=== PATIENT | male | born 1955 | race American Indian/Alaskan Native ===

== ENCOUNTER 2016-08-22 06:23 | Day surgery (SDC) | payer BC, OTHER ==
[~2016-08-22 06:23] MED LIST: Midazolam 1 MG/ML 2 ML SDV ONE; fentaNYL 100 MCG/2 ML SDV ONE
[2016-08-22] MEDS ORDERED: Sodium Chloride 0.9% 10 ML Syringe FLUSH PRN (06:24)
[2016-08-22] MEDS ORDERED: Dextrose 5%-0.45% NaCl 1,000 ML IV SCH (06:30)
[2016-08-22] MEDS ORDERED: fentaNYL 100 MCG/2 ML SDV IV ONE ×4 (07:27→16:38)
[2016-08-22] MEDS ORDERED: Midazolam 1 MG/ML 2 ML SDV IV ONE ×7 (07:28→16:38)
[2016-08-22 10:00] VITALS: BP 111/73
--- NOTE | 2016-08-22 11:03 | OR ---
DATE: 08/22/2016 PROCEDURE: Total colonoscopy, NBI, and multiple cold snare polypectomies. INSTRUMENT USED: CF-H180AL Olympus video colonoscope. Olympus distal detachment device. PREMEDICATIONS: Fentanyl 125 mcg intravenous, Versed 4 mg intravenous. The procedure was done under pulse oximetry, BP recording, and classroom monitor. INDICATION: Screening colonoscopic examination is done for detection of any polypoid lesions and removal, endoscopic hemostasis therapy if needed. DESCRIPTION OF PROCEDURE: Initial rectal exam was unremarkable. Rigid anoscopy showed moderate sized internal hemorrhoids without bleeding from them. The colonoscope was passed with ease. In the proximal sigmoid colon, 3 mm sized benign-appearing polyp was noted, NBI views were obtained, photographs were taken, cold snare polypectomy was done, the tissue was retrieved and sent for histopathology. Numerous scattered diverticula were noted in the distal left colon along with deformity. The scope was passed with ease up to the ileocecal area, photographs were taken of the normal-appearing cecum, identified by double- bulged ileocecal folds. No bleeding was noted from any of the visualized areas at the commencement of the examination. No stricture. No vascular ectasia. No large isolated ulcerations seen. No evidence of diffuse inflammatory bowel disease in the form of friability, contact bleeding, or ulcerations. Multiple diminutive polyps were noted, one in the mid transverse colon, and two in the distal ascending colon, multiple cold snare polypectomies were done, the tissues were retrieved sent for histopathology. No bleeding was noted from any of the visualized areas at the completion of examination. IMPRESSION: 1. Internal hemorrhoids. 2. Diverticulosis. 3. Multiple diminutive colonic polyps. The patient tolerated the procedure well. [facility] /[id number]
--- NOTE | 2016-08-22 12:51 | LETTER ---
08/22/2016 Jason Marks MD [address] [id number] RE: FUNMI REN Nelia : [address] Marks: Mr. Funmi Ren had colonoscopic examination done this morning and he tolerated the procedure well. I herewith send a copy of the endoscopy note and photographs for your review. Thank you. Sincerely, [facility] /[id number]
== END 2016-08-22 10:00 | disposition home or self-care (01) ==
LOC: DL.ENDO 06:23
PROVIDERS: ATTEND Internal Medicine Gastroenterology
DX: Z12.11 Encounter for screening for malignant neoplasm of colon (principal); D12.2 Benign neoplasm of ascending colon; D12.3 Benign neoplasm of transverse colon; K63.5 Polyp of colon; K57.30 Diverticulosis of large intestine without perforation or abscess without bleeding; K64.8 Other hemorrhoids; G47.33 Obstructive sleep apnea (adult) (pediatric); E66.9 Obesity, unspecified; E03.9 Hypothyroidism, unspecified; I10 Essential (primary) hypertension; E78.5 Hyperlipidemia, unspecified; N40.0 Benign prostatic hyperplasia without lower urinary tract symptoms; Z79.899 Other long term (current) drug therapy
CPT/HCPCS: 45385; J2250; J3010; J7042; 88305

== ENCOUNTER 2021-01-07 07:43 | Emergency (ER) | payer BC, OTHER ==
--- NOTE | 2021-01-07 08:03 | EDM.PDOC ---
ED HPI GENERAL MEDICAL PROBLEM - General Chief Complaint: Lower Extremity Injury/Pain Stated Complaint: LEFT LEG ISSUES Time Seen by Provider: 01/07/21 08:01 Source of Information: Reports: Patient, Old Records, RN, RN Notes Reviewed History Limitations: Reports: No Limitations - History of Present Illness INITIAL COMMENTS - FREE TEXT/NARRATIVE: Pt presents to ER from home by POV with c/o pain from the left upper leg to the ankle with numbness in the left foot. Pt states the symptoms were present this morning when he woke, and he thought maybe his foot was just asleep and he could walk it off. The numbness is now less, but still present and the pain is unchanged. Pt reports that on 10/20/20 he went to [facility] for left leg bypass and stents that was done through a catheter in his left groin. After the procedure it was determined that he had developed an "arterial blockage", and was taken back to surgery a second time and his leg was "opened" to correct the blockage. The pt does not know what vessels were bypassed, where or how many stents were placed, and does not know what was done at the second surgery. He does believe that everything turned out well because he has been walking an active with minimal pain until today. Pt denies swelling, discoloration, redness, increased warmth, or coldness of the left leg. Denies fever, chills, or shortness of breath. He states he is still taking the blood thinner as prescribed, but does not know the name of his medication. Pt states that he had some similar pain on 11/04/20 and [facility] [place] [facility] and was told everything looked okay. He doesn't know if the US was to look for arterial flow, a venous clot, or both. [facility] were [facility] and reviewed and will be submitted to be scanned into the EMR system. Onset: Gradual Duration: Constant Location: Reports: Lower Extremity, Left, Lower Extremity, Right Quality: Reports: Pressure Severity: Moderate Improves with: Reports: None Worsens with: Reports: Movement Context: Reports: Other (s/p stents and bypass left leg) Associated Symptoms: Reports: No Other Symptoms - Related Data Allergies Allergy/AdvReac Type Severity Reaction Status Date / Time shrimp Allergy Anaphylactic Verified 01/07/21 08:08 Shock Home Meds: Home Meds Ibuprofen 2 tab PO DAILY 08/18/16 [History] Levothyroxine Sodium 1 tab PO DAILY 08/18/16 [History] Lisinopril [Prinivil] 1 tab PO DAILY 08/18/16 [History] Simvastatin 1 tab PO BEDTIME 08/18/16 [History] Tamsulosin [Flomax] 1 tab PO BEDTIME 08/18/16 [History] Past Medical History HEENT History: Reports: None Cardiovascular History: Reports: Aneurysm (Left femoral artery), High Cholesterol, Hypertension, PVD, Stents (Left femoral artery and popliteal artery) Respiratory History: Reports: Sleep Apnea Gastrointestinal History: Reports: Diverticulosis, Other (See Below) Other Gastrointestinal History: FATTY LIVER. GALLBLADDER POLYP. GALLBLADDER SL UDGE Genitourinary History: Reports: BPH, Renal Calculus Musculoskeletal History: Reports: Back Pain, Chronic Neurological History: Reports: None Psychiatric History: Reports: None Endocrine/Metabolic History: Reports: Hypothyroidism, Obesity/BMI 30+ Hematologic History: Reports: None Immunologic History: Reports: None Oncologic (Cancer) History: Reports: None Dermatologic History: Reports: None - Infectious Disease History Infectious Disease History: Reports: Chicken Pox, Mumps - Past Surgical History Head Surgeries/Procedures: Reports: None HEENT Surgical History: Reports: None Cardiovascular Surgical History: Reports: None Respiratory Surgical History: Reports: None GI Surgical History: Reports: None Female Surgical History: Reports: Lithotripsy/ESWL Musculoskeletal Surgical History: Reports: None Dermatological Surgical History: Reports: None Social & Family History - Family History Family Medical History: No Pertinent Family History - Caffeine Use Caffeine Use: Reports: Coffee Other Caffeine Use: 2-3 cups - Living Situation & Occupation Living situation: Reports: Alone Review of Systems - Review of Systems Review Of Systems: Comprehensive ROS is negative, except as noted in HPI. ED EXAM, GENERAL - Physical Exam Exam: See Below Exam Limited By: No Limitations General Appearance: Alert, No Apparent Distress, Obese Throat/Mouth: Normal Voice, No Airway Compromise Head: Atraumatic, Normocephalic Neck: Normal Inspection Respiratory/Chest: No Respiratory Distress, Lungs Clear, Normal Breath Sounds, No Accessory Muscle Use, Chest Non-Tender Cardiovascular: Regular Rate, Rhythm, No Edema Peripheral Pulses: 0: Popliteal (L), Posterior Tibial (L), Dorsalis Pedis (L) (Present but weak by doppler), 2+: Femoral (L) GI/Abdominal: Normal Bowel Sounds, Soft, Non-Tender Extremities: Normal Range of Motion, Non-Tender, No Pedal Edema, Slow Capillary Refill (Left foot/toes). No: Joint Swelling, Ghanshyam's Sign, Increased Warmth, Mottled, Pallor, Redness Neurological: Alert, Oriented, CN II-XII Intact, Normal Cognition, Normal Gait, No Motor/Sensory Deficits Psychiatric: Anxious Skin Exam: Warm, Dry, Intact, Normal Color, No Rash, Wound/Incision (Surgical wound to left lower extremity are well healed without signs of infection.) Course - Vital Signs Last Recorded V/S: Last Vital Signs Temp 97.8 F 01/07/21 08:10 Pulse 84 01/07/21 08:10 Resp 16 01/07/21 08:10 BP 130/108 H 01/07/21 08:10 Pulse Ox 99 01/07/21 08:10 - Orders/Labs/Meds Labs: Laboratory Tests 01/07/21 01/07/21 01/07/21 Range/Units 08:21 08:21 08:21 WBC 8.0 (5.0-10.0) 10^3/uL RBC 4.88 (4.6-6.2) 10^6/uL Hgb 14.9 (14.0-18.0) g/dL Hct 43.5 (40.0-54.0) % MCV 89.1 (80-100) fL MCH 30.5 (27.0-34.0) pg MCHC 34.3 (33.0-35.0) g/dL Plt Count 204 (150-450) 10^3/uL Neut % (Auto) 68.5 (42.2-75.2) % Lymph % (Auto) 18.3 L (20.5-50.1) % [place] % (Auto) 7.3 (2-8) % Eos % (Auto) 4.5 H (1.0-3.0) % Baso % (Auto) 1.4 H (0.0-1.0) % PT 10.3 (9.0-12.0) SEC INR 1.0 (0.9-1.2) APTT 26.0 (22.0-34.0) SEC Sodium 136 (136-145) mmol/L Potassium 4.0 (3.5-5.1) mmol/L Chloride 101 (98-107) mmol/L Carbon Dioxide 24 (21-32) mmol/L Anion Gap 15.0 H (7-13) mEq/L BUN 17 (7-18) mg/dL Creatinine 1.14 (0.70-1.30) mg/dL Est Cr Clr Drug Dosing 59.85 mL/min Estimated GFR (MDRD) > 60 BUN/Creatinine Ratio 14.9 (No establ ref range) Glucose 162 H (70-99) mg/dL Calcium 8.7 (8.5-10.1) mg/dL Total Bilirubin 0.3 (0.2-1.0) mg/dL AST 15 (15-37) U/L ALT 37 (16-63) U/L Alkaline Phosphatase 81 (46-116) U/L Total Protein 7.4 (6.4-8.2) g/dL Albumin 3.7 (3.4-5.0) g/dL Globulin 3.7 Albumin/Globulin Ratio 1.0 - Re-Assessments/Exams Free Text/Narrative Re-Assessment/Exam: 01/07/21 09:[address] Amin from [facility]. He advises the pt may be discharged home to make arrangements to come to [facility] ER on his own so that they can obtain further evaluation of pt's postop. left lower extremity. Departure - Departure Time of Disposition: 09:29 Disposition: Home, Self-Care 01 Condition: Fair, Undetermined Clinical Impression: Left leg pain, Postoperative pain of extremity - Discharge Information *PRESCRIPTION DRUG MONITORING PROGRAM REVIEWED*: No *COPY OF PRESCRIPTION DRUG MONITORING REPORT IN PATIENT JOSÉ MIGUEL: No Instructions: Medical Screening Exam Forms: ED Department Discharge Additional Instructions: Go to [facility] to the emergency department, where Dr. Amin has agreed to evaluate your left leg. Do not eat or drink until cleared to do so by Dr. Amin. Sepsis Event Note (ED) - Focused Exam Vital Signs: Vital Signs Temp Pulse Resp BP Pulse Ox 01/07/21 08:10 97.8 F 84 16 130/108 H 99
[2021-01-07 08:25] VITALS: BP 130/108; PULSE 84
[2021-01-07 08:44] LABS: CHLORIDE,CL 101 mmol/L (98-107); SODIUM,NA 136 mmol/L (136-145)
== END 2021-01-07 09:57 | disposition home or self-care (01) ==
LOC: DL.ED 07:43
DX: M79.605 Pain in left leg (principal); G89.18 Other acute postprocedural pain; E78.00 Pure hypercholesterolemia, unspecified; I10 Essential (primary) hypertension; E03.9 Hypothyroidism, unspecified; E66.9 Obesity, unspecified; Z68.39 Body mass index [BMI] 39.0-39.9, adult; Z79.899 Other long term (current) drug therapy; Z91.018 Allergy to other foods
CPT/HCPCS: 36415; 80053; 85025; 85610; 85730; 99283

== ENCOUNTER 2021-02-02 14:14 | Emergency (ER) | payer OTHER, BC ==
[2021-02-02] MEDS ORDERED: Sodium Chloride 0.9% 10 ML Syringe FLUSH PRN (14:34)
[2021-02-02 14:36] VITALS: BP 154/98; PULSE 88
--- NOTE | 2021-02-02 14:52 | EDM.PDOC ---
ED HPI GENERAL MEDICAL PROBLEM - General Chief Complaint: General Stated Complaint: [id number] DISCOLORATION IN URINE ON WARFRIN Time Seen by Provider: 02/02/21 14:45 Source of Information: Reports: Patient History Limitations: Reports: No Limitations - History of Present Illness INITIAL COMMENTS - FREE TEXT/NARRATIVE: 65 M c/o 2 episodes of blood in his urine today. Pt is on Coumadin for blood clots in left lower leg. He reports in October he had stents placed in his L leg above and below the knee to improve blood flow. In Dec pt began experiencing pn in the left leg and was diagnosed with blood clots in the stents. Pt was placed on Coumadin and Lovenox for a duration and then the Lovenox was discontinued. Pts last INR on was 3.0. He reports no pain anywhere. Denies fever, cough, chills, drugs, etoh, trauma, blood in stool. - Related Data Allergies Allergy/AdvReac Type Severity Reaction Status Date / Time shrimp Allergy Anaphylactic Verified 02/02/21 14:36 Shock Home Meds: Home Meds Levothyroxine Sodium 137 mcg PO DAILY 08/18/16 [History] Lisinopril [Prinivil] 10 tab PO DAILY 08/18/16 [History] Simvastatin 40 tab PO BEDTIME 08/18/16 [History] Warfarin [Coumadin] 5 mg PO DAILY 02/02/21 [History] Warfarin [Coumadin] 7.5 mg PO DAILY 02/02/21 [History] Past Medical History HEENT History: Reports: None Cardiovascular History: Reports: Aneurysm, High Cholesterol, Hypertension, PVD, Stents Respiratory History: Reports: Sleep Apnea Gastrointestinal History: Reports: Diverticulosis, Other (See Below) Other Gastrointestinal History: FATTY LIVER. GALLBLADDER POLYP. GALLBLADDER SLUDGE Genitourinary History: Reports: BPH, Renal Calculus Musculoskeletal History: Reports: Back Pain, Chronic Neurological History: Reports: None Psychiatric History: Reports: None Endocrine/Metabolic History: Reports: Hypothyroidism, Obesity/BMI 30+ Hematologic History: Reports: None Immunologic History: Reports: None Oncologic (Cancer) History: Reports: None Dermatologic History: Reports: None - Infectious Disease History Infectious Disease History: Reports: Chicken Pox, Mumps - Past Surgical History Head Surgeries/Procedures: Reports: None HEENT Surgical History: Reports: None Cardiovascular Surgical History: Reports: None Respiratory Surgical History: Reports: None GI Surgical History: Reports: None Musculoskeletal Surgical History: Reports: None Dermatological Surgical History: Reports: None Social & Family History - Family History Family Medical History: No Pertinent Family History - Tobacco Use Tobacco Use Status *Q: Unknown Ever Used Tobacco - Caffeine Use Caffeine Use: Reports: Coffee Other Caffeine Use: 2-3 cups - Recreational Drug Use Recreational Drug Use: No - Living Situation & Occupation Living situation: Reports: Alone ED ROS GENERAL - Review of Systems Review Of Systems: Comprehensive ROS is negative, except as noted in HPI. ED EXAM, GENERAL - Physical Exam Exam: See Below Exam Limited By: No Limitations General Appearance: Alert, No Apparent Distress Eye Exam: Bilateral Eye: PERRL Nose: Normal Inspection, Normal Mucosa, No Blood Throat/Mouth: Normal Inspection, Normal Lips, Normal Teeth, Normal Gums, Normal Oropharynx, Normal Voice, No Airway Compromise Head: Atraumatic, Normocephalic Neck: Normal Inspection, Supple, Non-Tender, Full Range of Motion Respiratory/Chest: No Respiratory Distress, Lungs Clear, Normal Breath Sounds, No Accessory Muscle Use, Chest Non-Tender Cardiovascular: Normal Peripheral Pulses, Regular Rate, Rhythm, No Edema, No Gallop, No JVD, No Murmur, No Rub GI/Abdominal: Normal Bowel Sounds, Soft, Non-Tender, No Organomegaly, No Distention, No Abnormal Bruit, No Mass (Male) Exam: Deferred Rectal (Males) Exam: Deferred Back Exam: Normal Inspection, Full Range of Motion Extremities: Normal Inspection, Normal Range of Motion, Non-Tender, Normal Capillary Refill, No Pedal Edema Neurological: Alert, Oriented, CN II-XII Intact, Normal Cognition, Normal Gait, Normal Reflexes, No Motor/Sensory Deficits Psychiatric: Normal Affect, Normal Mood Skin Exam: Warm, Dry, Intact, Normal Color, No Rash Course - Vital Signs Last Recorded V/S: Last Vital Signs Temp 99.5 F 02/02/21 14:32 Pulse 88 02/02/21 14:32 Resp 14 02/02/21 14:32 BP 154/98 H 02/02/21 14:32 Pulse Ox 96 02/02/21 14:32 - Orders/Labs/Meds Orders: Active Orders 24 hr Category Date Time Status CULTURE URINE [RM] Stat Lab 02/02/21 14:20 Received Labs: Laboratory Tests 02/02/21 02/02/21 02/02/21 Range/Units 14:20 14:46 14:46 WBC 12.4 H (5.0-10.0) 10^3/uL RBC 5.24 (4.6-6.2) 10^6/uL Hgb 15.2 (14.0-18.0) g/dL Hct 45.4 (40.0-54.0) % MCV 86.6 (80-100) fL MCH 29.0 (27.0-34.0) pg MCHC 33.5 (33.0-35.0) g/dL Plt Count 203 (150-450) 10^3/uL Neut % (Auto) 78.0 H (42.2-75.2) % Lymph % (Auto) 11.2 L (20.5-50.1) % [place] % (Auto) 6.7 (2-8) % Eos % (Auto) 3.4 H (1.0-3.0) % Baso % (Auto) 0.7 (0.0-1.0) % PT (9.0-12.0) SEC INR (0.9-1.2) Sodium 136 (136-145) mmol/L Potassium 4.2 (3.5-5.1) mmol/L Chloride 100 (98-107) mmol/L Carbon Dioxide 23 (21-32) mmol/L Anion Gap 17.2 H (7-13) mEq/L BUN 18 (7-18) mg/dL Creatinine 0.98 (0.70-1.30) mg/dL Est Cr Clr Drug Dosing 67.11 mL/min Estimated GFR (MDRD) > 60 BUN/Creatinine Ratio 18.4 (No establ ref range) Glucose 118 H (70-99) mg/dL Calcium 8.9 (8.5-10.1) mg/dL Total Bilirubin 0.4 (0.2-1.0) mg/dL AST 22 (15-37) U/L ALT 48 (16-63) U/L Alkaline Phosphatase 80 (46-116) U/L C-Reactive Protein < 0.2 (0.0-0.9) mg/dL Total Protein 7.5 (6.4-8.2) g/dL Albumin 2.6 L (3.4-5.0) g/dL Globulin 4.9 Albumin/Globulin Ratio 0.53 Urine Color Yellow (YELLOW) Urine Appearance Cloudy (CLEAR) Urine pH 6.0 (5.0-9.0) Ur Specific [place] 1.025 (1.005-1.030) Urine Protein Negative (NEGATIVE) Urine Glucose (UA) Negative (NEGATIVE) Urine Ketones Negative (NEGATIVE) Urine Occult Blood Large H (NEGATIVE) Urine Nitrite Positive H (NEGATIVE) Urine Bilirubin Negative (NEGATIVE) Urine Urobilinogen 0.2 (0.2-1.0) mg/dL Ur Leukocyte Esterase Large H (NEGATIVE) Urine RBC 20-30 H (0-5) /HPF Urine WBC 30-40 H (0-5/HPF) /HPF Ur Epithelial Cells Not seen (NOT SEEN) /HPF Urine Bacteria Many H (0-FEW/HPF) /HPF Urine Yeast Few H (NOT SEEN) /HPF 02/02/21 Range/Units 14:46 WBC (5.0-10.0) 10^3/uL RBC (4.6-6.2) 10^6/uL Hgb (14.0-18.0) g/dL Hct (40.0-54.0) % MCV (80-100) fL MCH (27.0-34.0) pg MCHC (33.0-35.0) g/dL Plt Count (150-450) 10^3/uL Neut % (Auto) (42.2-75.2) % Lymph % (Auto) (20.5-50.1) % [place] % (Auto) (2-8) % Eos % (Auto) (1.0-3.0) % Baso % (Auto) (0.0-1.0) % PT 28.8 H D (9.0-12.0) SEC INR 2.9 H (0.9-1.2) Sodium (136-145) mmol/L Potassium (3.5-5.1) mmol/L Chloride (98-107) mmol/L Carbon Dioxide (21-32) mmol/L Anion Gap (7-13) mEq/L BUN (7-18) mg/dL Creatinine (0.70-1.30) mg/dL Est Cr Clr Drug Dosing mL/min Estimated GFR (MDRD) BUN/Creatinine Ratio (No establ ref range) Glucose (70-99) mg/dL Calcium (8.5-10.1) mg/dL Total Bilirubin (0.2-1.0) mg/dL AST (15-37) U/L ALT (16-63) U/L Alkaline Phosphatase (46-116) U/L C-Reactive Protein (0.0-0.9) mg/dL Total Protein (6.4-8.2) g/dL Albumin (3.4-5.0) g/dL Globulin Albumin/Globulin Ratio Urine Color (YELLOW) Urine Appearance (CLEAR) Urine pH (5.0-9.0) Ur Specific [place] (1.005-1.030) Urine Protein (NEGATIVE) Urine Glucose (UA) (NEGATIVE) Urine Ketones (NEGATIVE) Urine Occult Blood (NEGATIVE) Urine Nitrite (NEGATIVE) Urine Bilirubin (NEGATIVE) Urine Urobilinogen (0.2-1.0) mg/dL Ur Leukocyte Esterase (NEGATIVE) Urine RBC (0-5) /HPF Urine WBC (0-5/HPF) /HPF Ur Epithelial Cells (NOT SEEN) /HPF Urine Bacteria (0-FEW/HPF) /HPF Urine Yeast (NOT SEEN) /HPF Meds: Medications Discontinued Medications Generic Name Dose Route Start Last Admin Trade Name Freq PRN Reason Stop Dose Admin Sodium Chloride 10 ml 02/02/21 14:34 Sodium Chloride 0.9% 10 Ml Syringe FLUSH ASDIRECTED PRN Keep Vein Open - Re-Assessments/Exams Free Text/Narrative Re-Assessment/Exam: 02/02/21 15:37 The pt has a uti. I have informed the pt of his diagnosis as well as the other results of his labs and exam Departure - Departure Time of Disposition: 15:42 Disposition: Home, Self-Care 01 Condition: Good Clinical Impression: UTI (urinary tract infection) Qualifiers: Urinary tract infection type: acute cystitis Hematuria presence: with hematuria Qualified Code(s): N30.01 - Acute cystitis with hematuria - Discharge Information *PRESCRIPTION DRUG MONITORING PROGRAM REVIEWED*: Not Applicable *COPY OF PRESCRIPTION DRUG MONITORING REPORT IN PATIENT JOSÉ MIGUEL: Not Applicable Instructions: Urinary Tract Infection, Adult, [id number] Forms: ED Department Discharge Additional Instructions: RX: Levaquin Drink plenty of water. Follow up with your primary care facility next week if symptoms do not resolve. If any new symptoms or concerns develop contact your primary care facility or return to the ER. Sepsis Event Note (ED) - Evaluation Sepsis Screening Result: No Definite Risk - Focused Exam Vital Signs: Vital Signs Temp Pulse Resp BP Pulse Ox 02/02/21 14:32 99.5 F 88 14 154/98 H 96 - My Orders Last 24 Hours: My Active Orders 02/02/21 14:20 CULTURE URINE [RM] Stat - Assessment/Plan Last 24 Hours: My Active Orders 02/02/21 14:20 CULTURE URINE [RM] Stat
[2021-02-02 15:17] LABS: ANION GAP 17.2 mEq/L (7-13); CHLORIDE,CL 100 mmol/L (98-107); SODIUM,NA 136 mmol/L (136-145)
== END 2021-02-02 15:52 | disposition home or self-care (01) ==
LOC: DL.ED 14:14
DX: N30.01 Acute cystitis with hematuria (principal); E78.00 Pure hypercholesterolemia, unspecified; I10 Essential (primary) hypertension; E03.9 Hypothyroidism, unspecified; E66.9 Obesity, unspecified; Z68.41 Body mass index [BMI] 40.0-44.9, adult; Z79.01 Long term (current) use of anticoagulants; Z91.013 Allergy to seafood; Z79.899 Other long term (current) drug therapy
CPT/HCPCS: 36415; 80053; 81001; 85025; 85610; 86140; 87086; 87088; 87186; 99283

== ENCOUNTER 2021-03-14 09:53 | Inpatient (IN) | payer OTHER, BC ==
--- NOTE | 2021-03-14 10:20 | EDM.PDOC ---
<Austen Morton - Last Filed: 03/14/21 11:10> ED HPI GENERAL MEDICAL PROBLEM - General Stated Complaint: NUMB TOES POST SURGERY Time Seen by Provider: 03/14/21 10:10 Source of Information: Reports: Patient, RN History Limitations: Reports: No Limitations - History of Present Illness INITIAL COMMENTS - FREE TEXT/NARRATIVE: Patient is a 65 yo male with PMH of HTN, blood clots in his left leg s/p stents/bipass, and thyroid disorders who presents to the ED for left foot pain. Pain/tingling in his left foot started this morning as he walked outside to look at the weather. He describes it as tingling in his foot/toes. Nothing makes it better or worse. No associated symptoms. Of not patient did have a blood clot in an artery in his left lower extremity in October 2020. At that time he received 2 stents placed in his artery of his left leg in [place] at the [facility] by Dr. Amin. He was placed on lovenox to bridge until warfarin was therapeutic. In February patient had occlusion of his stents and was sent back to [facility], despite therapeutic warfarin therapy. On 03/02 patient had bypass surgery. His warfarin was discontinued and he was started on rivaroxaban 2.5 mg BID, he has been compliant all of his medications. posterior left knee Pain Score (Numeric/FACES): 4 - Related Data Allergies Allergy/AdvReac Type Severity Reaction Status Date / Time shrimp Allergy Anaphylactic Verified 03/14/21 10:12 Shock mushrooms Allergy Hives Uncoded 03/14/21 10:12 Home Meds: Home Meds Levothyroxine Sodium 137 mcg PO DAILY 08/18/16 [History] Lisinopril [Prinivil] 5 mg PO DAILY 08/18/16 [History] Simvastatin 20 mg PO BEDTIME 08/18/16 [History] Aspirin [Aspirin EC] 81 mg PO DAILY 03/14/21 [History] Rivaroxaban [Xarelto] 2.5 mg PO BID 03/14/21 [History] Past Medical History HEENT History: Reports: None Cardiovascular History: Reports: Aneurysm, High Cholesterol, Hypertension, PVD, Stents Respiratory History: Reports: Sleep Apnea Gastrointestinal History: Reports: Diverticulosis, Other (See Below) Other Gastrointestinal History: FATTY LIVER. GALLBLADDER POLYP. GALLBLADDER SLUDGE Genitourinary History: Reports: BPH, Renal Calculus Musculoskeletal History: Reports: Back Pain, Chronic Neurological History: Reports: None Psychiatric History: Reports: None Endocrine/Metabolic History: Reports: Hypothyroidism, Obesity/BMI 30+ Hematologic History: Reports: None Immunologic History: Reports: None Oncologic (Cancer) History: Reports: None Dermatologic History: Reports: None - Infectious Disease History Infectious Disease History: Reports: Chicken Pox, Mumps - Past Surgical History Head Surgeries/Procedures: Reports: None HEENT Surgical History: Reports: None Cardiovascular Surgical History: Reports: None Respiratory Surgical History: Reports: None GI Surgical History: Reports: None Musculoskeletal Surgical History: Reports: None Dermatological Surgical History: Reports: None Social & Family History - Family History Family Medical History: No Pertinent Family History - Caffeine Use Caffeine Use: Reports: Coffee Other Caffeine Use: 2-3 cups - Living Situation & Occupation Living situation: Reports: Alone Review of Systems - Review of Systems Review Of Systems: See Below Constitutional: Reports: No Symptoms Eyes: Reports: No Symptoms Ears: Reports: No Symptoms Nose: Reports: No Symptoms Mouth/Throat: Reports: No Symptoms Respiratory: Reports: No Symptoms Cardiovascular: Reports: No Symptoms GI/Abdominal: Reports: No Symptoms Genitourinary: Reports: No Symptoms Musculoskeletal: Reports: Other (Left foot pain/paresthesias ) Skin: Reports: No Symptoms Neurological: Reports: No Symptoms Psychiatric: Reports: No Symptoms ED EXAM, GENERAL - Physical Exam Exam: See Below Exam Limited By: No Limitations General Appearance: Alert, WD/WN, No Apparent Distress Head: Atraumatic, Normocephalic Neck: Normal Inspection, Supple, Non-Tender, Full Range of Motion Respiratory/Chest: No Respiratory Distress, Lungs Clear, Normal Breath Sounds, No Accessory Muscle Use, Chest Non-Tender Cardiovascular: Normal Peripheral Pulses, Regular Rate, Rhythm, No Edema, No Gallop, No JVD, No Murmur, No Rub Peripheral Pulses: 0: Posterior Tibial (L) (Unable to hear with doppler as well), 2+: Posterior Tibial (R) (Able to hear with doppler), Dorsalis Pedis (L) (Palpable and able to find with doppler), Dorsalis Pedis (R) (Able to hear with doppler) GI/Abdominal: Normal Bowel Sounds, Soft, Non-Tender, No Organomegaly, No Distention, No Abnormal Bruit, No Mass Extremities: Normal Inspection, Normal Range of Motion, Non-Tender, No Pedal Edema (Left foot has good color and is not dusky. Left foot has decreased cap refill, dorsalis pedis is palpable, posterior tibial is not palpable or found with doppler. ) Neurological: Alert, Oriented, Normal Cognition Psychiatric: Normal Affect, Normal Mood Skin Exam: Warm, Dry, Intact, Normal Color, No Rash Lymphatic: No Adenopathy Course - Re-Assessments/Exams Free Text/Narrative Re-Assessment/Exam: With patient's history of clots, clotted stents, and bypass we call the patients vascular surgeon at the [facility]. After discussing the case with Dr. Amin at the [facility] he agreed to accept the patient for transfer. Transfer is occurring due to concern for artery occlusion while on anticoagulation after bypass surgery on left lower extremity. 03/14/21 10:59 Departure - Departure Time of Disposition: 11:15 Disposition: DC/Tfer to [facility] 43 Condition: Good Clinical Impression: Peripheral artery disease - Discharge Information *PRESCRIPTION DRUG MONITORING PROGRAM REVIEWED*: Not Applicable *COPY OF PRESCRIPTION DRUG MONITORING REPORT IN PATIENT JOSÉ MIGUEL: Not Applicable Instructions: Peripheral Vascular Disease, [id number] Forms: Interfacility Transfer EMTALA - Assessment/Plan Plan: Patient is a 65 yo male with pmh of left lower extremity artery clots s/p stents and bypass. On assessment today patients left posterior tibial artery is not palpable or found on Doppler. Due to concern for reocclusion we discussed the case with Dr. Amin (the patients vascular surgeon at [facility]) who agreed to have the patient transferred to [facility]. Patient will be transferred by ground ambulance. Covid test was ordered prior to discharge. <Teja Spaulding - Last Filed: 03/14/21 11:17> Course - Vital Signs Last Recorded V/S: Last Vital Signs Temp 98.9 F 03/14/21 10:06 Pulse 94 03/14/21 10:06 Resp 20 03/14/21 10:06 BP 158/102 H 03/14/21 10:06 Pulse Ox 96 03/14/21 10:06 - Orders/Labs/Meds Orders: Active Orders 24 hr Category Date Time Status CORONAVIRUS COVID-19 RAJANI [MOLEC] Stat Lab 03/14/21 10:36 Ordered - Re-Assessments/Exams Free Text/Narrative Re-Assessment/Exam: 03/14/21 11:17 I saw and evaluated the patient. Discussed with resident and agree with residents findings and plan as documented in the residents note. Sepsis Event Note (ED) - Focused Exam Vital Signs: Vital Signs Temp Pulse Resp BP Pulse Ox 03/14/21 10:06 98.9 F 94 20 158/102 H 96
[2021-03-14] MEDS ORDERED: Sodium Chloride 0.9% 10 ML Syringe FLUSH PRN (17:53)
[2021-03-14] MEDS ORDERED: Ondansetron 4 MG Tab.DIS PO PRN (17:53)
[2021-03-14] MEDS ORDERED: Polyethylene Glycol 3350 Powder 17 GM Packet PO PRN (17:53)
--- NOTE | 2021-03-14 18:05 | PCM.HP ---
H&P History of Present Illness - General Date of Service: 03/14/21 Admit Problem/Dx: Admission Diagnosis/Problem Admission Diagnosis/Problem Vascular insufficiency of limb Source of Information: Patient, Provider History Limitations: Reports: No Limitations - History of Present Illness Initial Comments - Free Text/Narative: Rigoberto is a 65-year-old man with a past medical history significant for hypertension, hyperlipidemia, morbid obesity, peripheral arterial disease, claudication with a recent left femoropopliteal bypass, TEJA on CPAP but he does not wear frequently, and chronic back pain. He has had an extensive surgical course for his left lower extremity. Initially started with angioplasty and stenting and eventually progressed to a femoropopliteal bypass. Patient states that early this morning he woke up and felt that something "was not quite right" with his left lower extremity. He stated that his toes started going numb. He then noticed diaphoresis and checked his blood pressure which he found to be significantly elevated with systolic in the 180s. He said this is similar to what is happened to him in the past when his stents occluded and his left lower extremity became compromised. He tried nothing at home as he had episodes like this previously and knew that the only intervention that would be effective will be surgical. He then presented to the emergency department. Vascular surgeon at the [facility] in [place] was contacted. He was impossible due to blizzard conditions to transport the patient for further evaluation and treatment of a possible ischemic limb with limb compromise. Patient was thus admitted to the hospital and assume his transportation can be arranged he will be transported to the [facility] under the care of his vascular surgeon. Onset of Symptoms: Reports: Sudden Symptom Onset Date: 03/14/21 Duration of Symptoms: Reports: Hour(s):, Getting Worse Location: Reports: Lower Extremity, Left Quality: Reports: Ache, Dull, Same as Previous Episode Severity: Moderate Improves with: Reports: Rest Worsens with: Reports: Movement Context: Reports: Other (recent fem pop bypass) Associated Symptoms: Reports: No Other Symptoms posterior left knee Pain Score (Numeric/FACES): 4 - Related Data Allergies/Adverse Reactions: Allergies Allergy/AdvReac Type Severity Reaction Status Date / Time shrimp Allergy Anaphylactic Verified 03/14/21 17:20 Shock mushrooms Allergy Hives Uncoded 03/14/21 10:12 Home Medications: Home Meds Levothyroxine Sodium 137 mcg PO DAILY 08/18/16 [History] Lisinopril [Prinivil] 5 mg PO DAILY 08/18/16 [History] Simvastatin 20 mg PO BEDTIME 08/18/16 [History] Aspirin [Aspirin EC] 81 mg PO DAILY 03/14/21 [History] Rivaroxaban [Xarelto] 2.5 mg PO BID 03/14/21 [History] Past Medical History HEENT History: Reports: Impaired Vision Cardiovascular History: Reports: Aneurysm, High Cholesterol, Hypertension, PVD, Stents Other Cardiovascular History: Aneurysm in R and L leg, stents in legs Respiratory History: Reports: Sleep Apnea Gastrointestinal History: Reports: Diverticulosis, Other (See Below) Other Gastrointestinal History: FATTY LIVER. GALLBLADDER POLYP. GALLBLADDER SLUDGE Genitourinary History: Reports: BPH, Renal Calculus Musculoskeletal History: Reports: Back Pain, Chronic Neurological History: Reports: None Psychiatric History: Reports: None Endocrine/Metabolic History: Reports: Hypothyroidism, Obesity/BMI 30+ Hematologic History: Reports: Anticoagulation Therapy Immunologic History: Reports: None Oncologic (Cancer) History: Reports: None Dermatologic History: Reports: None - Infectious Disease History Infectious Disease History: Reports: None - Past Surgical History Head Surgeries/Procedures: Reports: None HEENT Surgical History: Reports: None Cardiovascular Surgical History: Reports: Vascular Surgery Other Cardiovascular Surgeries/Procedures: vascular bypass to left leg Respiratory Surgical History: Reports: None GI Surgical History: Reports: None Male Surgical History: Reports: None Endocrine Surgical History: Reports: None Neurological Surgical History: Reports: None Musculoskeletal Surgical History: Reports: Shoulder Replacement Other Musculoskeletal Surgeries/Procedures:: Right shoulder replacement Dermatological Surgical History: Reports: None Social & Family History - Family History Family Medical History: No Pertinent Family History - Tobacco Use Tobacco Use Status *Q: Never Tobacco User - Caffeine Use Caffeine Use: Reports: None Other Caffeine Use: 2-3 cups - Recreational Drug Use Recreational Drug Use: No - Living Situation & Occupation Living situation: Reports: Alone H&P Review of Systems - Review of Systems: Review Of Systems: See Below General: Reports: Diaphoresis HEENT: Reports: Glasses, Headaches Pulmonary: Reports: No Symptoms Cardiovascular: Reports: Claudication, Blood Pressure Problem Gastrointestinal: Reports: No Symptoms Genitourinary: Reports: No Symptoms Musculoskeletal: Reports: Other (chronic back pain) Skin: Denies: Cyanosis, Mottled, Pallor, Diaphoresis Psychiatric: Reports: No Symptoms Neurological: Reports: Paresthesia (left foot) Hematologic/Lymphatic: Reports: No Symptoms Immunologic: Reports: No Symptoms Exam - Exam Exam: See Below - Vital Signs Vital Signs: Last Vital Signs Temp 98.8 F 03/14/21 13:19 Pulse 82 03/14/21 13:19 Resp 15 03/14/21 13:19 BP 134/70 03/14/21 13:19 Pulse Ox 97 03/14/21 13:19 Weight: 258 lb 6.4 oz - Exam Quality Assessment: DVT Prophylaxis. No: Supplemental Oxygen, Skin Breakdown General: Alert, Oriented, Cooperative, Mild Distress HEENT: EOMI, Pupils Equal Neck: Supple. No: JVD Lungs: Clear to Auscultation, Normal Respiratory Effort. No: Decreased Breath Sounds, Rales, Rhonchi, Rub, Wheezing Cardiovascular: Regular Rate, Regular Rhythm. No: Systolic Murmur, Diastolic Murmur, Rubs GI/Abdominal Exam: Soft, Non-Tender, Other (obese) (Male) Exam: Deferred Rectal (Males) Exam: Deferred Back Exam: Normal Inspection, Full Range of Motion Extremities: Normal Inspection. No: Pedal Edema (decreased capillary refill on left. no edema. ), Limited Range of Motion, Increased Warmth Peripheral Pulses: 0: Posterior Tibial (L), 1+: Posterior Tibial (R), Dorsalis Pedis (L), 3+: Dorsalis Pedis (R) Skin: Warm, Dry, Intact Neuro Extensive - Mental Status: Alert, Oriented x3, Normal Mood/Affect, Normal Cognition Neuro Extensive - Motor, Sensory, Reflexes: Normal Gait Psychiatric: Normal Affect, Normal Mood - Patient Data Lab Results Last 24 hrs: Laboratory Results - last 24 hr 03/14/21 Range/Units 10:36 SARS-CoV-2 RNA (RAJANI) Negative (NEGATIVE) Problem List Initiated/Reviewed/Updated: Yes Orders Last 24hrs: Active Orders 24 hr Category Date Time Status Admission Diagnosis [ADT] Stat ADT 03/14/21 16:22 Ordered Admission Status [Patient Status] [ADT] Routine ADT 03/14/21 16:22 Active Height and Weight [RC] UPON Care 03/14/21 17:53 Ordered May Shower [RC] ASDIRECTED Care 03/14/21 17:53 Ordered Oxygen Therapy [RC] PRN Care 03/14/21 17:54 Ordered Peripheral IV Care [RC] . DIRECTED Care 03/14/21 17:56 Ordered Up With Assistance [RC] ASDIRECTED Care 03/14/21 17:53 Ordered VTE/DVT Education [RC] PER UNIT ROUTINE Care 03/14/21 17:54 Ordered Vital Signs [RC] Q4H Care 03/14/21 17:54 Ordered Heart Healthy Diet [DIET] Diet 03/14/21 Dinner Ordered BASIC METABOLIC PANEL,BMP [CHEM] Stat Lab 03/14/21 17:53 Ordered Acetaminophen [TylenoL] Med 03/14/21 17:53 Ordered 650 mg PO Q4H PRN Levothyroxine Med 03/15/21 09:00 Ordered 137 mcg PO DAILY Ondansetron [Zofran ODT] Med 03/14/21 17:53 Ordered 4 mg PO Q6H PRN Simvastatin [Simvastatin] Med 03/14/21 21:00 Ordered 20 mg PO BEDTIME Sodium Chloride 0.9% [Saline Flush] Med 03/14/21 17:53 Ordered 10 ml FLUSH ASDIRECTED PRN lisinopriL [Prinivil] Med 03/15/21 09:00 Ordered 5 mg PO DAILY polyethylene glycoL 3350 [MiraLAX] Med 03/14/21 17:53 Ordered 17 gm PO DAILY PRN Peripheral IV Insertion Adult [OM.PC] Routine Oth 03/14/21 17:53 Ordered Resuscitation Status Routine Resus Stat 03/14/21 17:53 Ordered Assessment/Plan Comment:: ACTIVE PROBLEMS: Possible acute limb ischemia, left lower extremity History of peripheral arterial disease History of left femoropopliteal bypass Long-term anticoagulation secondary to above -Xarelto and ASA 81 held the morning of 03/14/2021. Patient accepted as a transfer to the [facility] when weather conditions permit transfer. -Given BMI greater than 40 anticoagulation will need to be with heparin drip which was initiated the afternoon of 03/14/2021 -Every shift pulse checks Chronic conditions: -TEJA noncompliant with CPAP -Essential hypertension: Continue lisinopril 5 mg once daily -Mixed hyperlipidemia: Continue simvastatin 20 mg nightly -Acquired hypothyroidism: Continue levothyroxine 137 mcg once daily -Chronic back pain -Morbid obesity with BMI greater than 40
[2021-03-14] MEDS ORDERED: Heparin Sodium/0.45% NaCl 25,000 UNITS/500 ML BAG IV SCH (18:15)
[2021-03-14 18:31] LABS: CHLORIDE,CL 98 mmol/L (98-107); SODIUM,NA 136 mmol/L (136-145)
[2021-03-14] MEDS: Acetaminophen 325 MG Tab PO PRN (18:38)
[2021-03-14] MEDS ORDERED: Simvastatin 10 MG Tab PO SCH (21:00)
[2021-03-14] MEDS ORDERED: Heparin Sodium 5,000 Units/ML Vial IVPUSH ONE (21:15)
[2021-03-15] MEDS ORDERED: Heparin Sodium 5,000 Units/ML Vial IVPUSH ONE (05:24)
[2021-03-15 08:12] VITALS: BP 121/74; PULSE 71
[2021-03-15] MEDS: Acetaminophen 325 MG Tab PO PRN (08:44)
[2021-03-15] MEDS ORDERED: Levothyroxine 25 MCG Tab PO SCH (09:00)
[2021-03-15] MEDS ORDERED: Lisinopril 5 MG Tab PO SCH (09:00)
[2021-03-15] MEDS ORDERED: Levothyroxine 112 MCG Tab PO SCH (09:00)
--- NOTE | 2021-03-15 09:49 | PCM.DCSUM1 ---
Discharge Summary - Hospital Course Brief History: see below Diagnosis: Stroke: No Modified Scott Scale: Slight Disable;Unable to Carry Out Prev Act.Able to Look After Affairs Modified Scott Scale Score: 2 - Discharge Data Discharge Date: 03/15/21 Discharge Disposition: DC/Tfer to Acute Hospital 02 Condition: Fair - Referral to Home Health Primary Care Physician: PCP None - Patient Summary/Data Hospital Course: Rigoberto is a 65-year-old man with a past medical history significant for hypertension, hyperlipidemia, morbid obesity, peripheral arterial disease, claudication with a recent left femoropopliteal bypass, TEJA on CPAP but he does not wear frequently, and chronic back pain. He has had an extensive surgical course for revascularization of his left lower extremity. Initially started with angioplasty and stenting and eventually progressed to a femoropopliteal bypass. Patient seen in the ED 03/14/21 for new onset parasthesia of his LLE with associated diaphoresis and hypertensive urgency. Diminished pulses were noted so Vascular surgeon at the [facility] in [place] was contacted and accepted transfer. He was impossible due to blizzard conditions to transport on 03/14/21 so patient was admtted to the hosptial for further evaluation and treatment of a possible ischemic limb with limb compromise while awaiting safe transport. by the morning of 03/15/21 he remained afebrile and hemodynamically stable. pulses continued to be diminished in his LLE and he complained of continued paraesthesias. He was considered medically stable for discharge and safe transport was available. He was then transferred to the [facility] for continued evaluation and treatment by his vascular surgeon. - Patient Instructions Diet: Heart Healthy Diet Activity: Elevate Extremity (LLE) Driving: Do Not Drive - Discharge Plan *PRESCRIPTION DRUG MONITORING PROGRAM REVIEWED*: Not Applicable *COPY OF PRESCRIPTION DRUG MONITORING REPORT IN PATIENT JOSÉ MIGUEL: Not Applicable Home Medications: Home Meds Levothyroxine Sodium 137 mcg PO DAILY 08/18/16 [History] Lisinopril [Prinivil] 5 mg PO DAILY 08/18/16 [History] Simvastatin 20 mg PO BEDTIME 08/18/16 [History] Oxygen Therapy Mode: Room Air Patient Handouts: Peripheral Vascular Disease, [id number] Forms: Interfacility Transfer EMTALA Referrals: PCP,None [Primary Care Provider] - - Discharge Summary/Plan Comment DC Time >30 min.: Yes Total # of Minutes for Discharge Time: 60 - General Info Date of Service: 03/15/21 Admission Dx/Problem (Free Text: Admission Diagnosis/Problem Admission Diagnosis/Problem Vascular insufficiency of limb Functional Status: Reports: Pain Controlled, Tolerating Diet, Ambulating - Review of Systems General: Reports: No Symptoms HEENT: Reports: Glasses Pulmonary: Reports: No Symptoms. Denies: Shortness of Breath, Cough, Sputum, Wheezing Cardiovascular: Denies: Chest Pain, Palpitations, Dyspnea on Exertion, Edema Gastrointestinal: Reports: No Symptoms. Denies: Constipation, Diarrhea, Nausea Genitourinary: Reports: No Symptoms Musculoskeletal: Reports: Leg Pain (LLE) Skin: Reports: No Symptoms. Denies: Cyanosis, Mottled, Pallor Neurological: Reports: Paresthesia (LLE) Psychiatric: Reports: No Symptoms - Patient Data Vitals - Most Recent: Last Vital Signs Temp 97.7 F 03/15/21 08:09 Pulse 71 03/15/21 08:09 Resp 20 03/15/21 08:09 BP 121/74 03/15/21 08:43 Pulse Ox 97 03/15/21 08:09 Weight - Most Recent: 251 lb 6.4 oz I&O - Last 24 hours: Intake & Output 03/14/21 03/15/21 03/15/21 22:59 06:59 14:59 Intake Total 400 440 Output Total 900 325 Balance 400 -900 115 Lab Results - Last 24 hrs: Laboratory Results - last 24 hr 03/14/21 03/14/21 03/14/21 Range/Units 10:36 18:10 18:10 Plt Count (150-450) 10^3/uL APTT 27.1 (22.0-34.0) SEC Sodium 136 (136-145) mmol/L Potassium 4.0 (3.5-5.1) mmol/L Chloride 98 (98-107) mmol/L Carbon Dioxide 28 (21-32) mmol/L Anion Gap 14.0 H (7-13) mEq/L BUN 14 (7-18) mg/dL Creatinine 1.08 (0.70-1.30) mg/dL Est Cr Clr Drug Dosing 63.18 mL/min Estimated GFR (MDRD) > 60 Glucose 147 H (70-99) mg/dL Calcium 9.6 (8.5-10.1) mg/dL SARS-CoV-2 RNA (RAJANI) Negative (NEGATIVE) 03/14/21 03/15/21 Range/Units 20:40 04:00 Plt Count 283 D (150-450) 10^3/uL APTT 42.0 H (22.0-34.0) SEC Sodium (136-145) mmol/L Potassium (3.5-5.1) mmol/L Chloride (98-107) mmol/L Carbon Dioxide (21-32) mmol/L Anion Gap (7-13) mEq/L BUN (7-18) mg/dL Creatinine (0.70-1.30) mg/dL Est Cr Clr Drug Dosing mL/min Estimated GFR (MDRD) Glucose (70-99) mg/dL Calcium (8.5-10.1) mg/dL SARS-CoV-2 RNA (RAJANI) (NEGATIVE) Med Orders - Current: Current Medications Acetaminophen (Acetaminophen 325 Mg Tab) 650 mg PO Q4H PRN PRN Reason: Pain (Mild 1-3)/fever Last Admin: 03/15/21 08:44 Dose: 650 mg Documented by: Heparin Sodium/Sodium Chloride (Heparin 25,000 Units In 1/2 Ns 500 Ml) 25,000 units in 500 mls @ 26 mls/hr IV TITRATE NARESH; Protocol Last Titration: 03/15/21 05:18 Dose: 30.6 mls/hr, 30.6 mls/hr Documented by: Levothyroxine Sodium (Levothyroxine 112 Mcg Tab) 112 mcg PO ACBREAKFAST NARESH Levothyroxine Sodium (Levothyroxine 25 Mcg Tab) 25 mcg PO ACBREAKFAST NARESH Lisinopril (Lisinopril 5 Mg Tab) 5 mg PO DAILY [facility] Last Admin: 03/15/21 08:43 Dose: 5 mg Documented by: Ondansetron HCl (Ondansetron 4 Mg Tab.Dis) 4 mg PO Q6H PRN PRN Reason: nausea, able to take PO Polyethylene Glycol (Polyethylene Glycol 3350 Powder 17 Gm Packet) 17 gm PO DAILY PRN PRN Reason: Constipation Simvastatin (Simvastatin 10 Mg Tab) 20 mg PO BEDTIME [facility] Last Admin: 03/14/21 21:58 Dose: 20 mg Documented by: Sodium Chloride (Sodium Chloride 0.9% 10 Ml Syringe) 10 ml FLUSH ASDIRECTED PRN PRN Reason: Keep Vein Open Discontinued Medications Heparin Sodium (Porcine) (Heparin Sodium 5,000 Units/Ml Vial) 5,000 units IVPUSH .BOLUS ONE Stop: 03/14/21 21:16 Last Admin: 03/14/21 22:01 Dose: 5,000 units Documented by: Heparin Sodium (Porcine) (Heparin Sodium 5,000 Units/Ml Vial) 1,500 units IVPUSH .BOLUS ONE Stop: 03/15/21 05:25 Last Admin: 03/15/21 05:35 Dose: 1,500 units Documented by: Levothyroxine Sodium (Levothyroxine 112 Mcg Tab) 0 mcg PO DAILY [facility] Last Admin: 03/15/21 08:43 Dose: 112 mcg Documented by: Levothyroxine Sodium (Levothyroxine 25 Mcg Tab) 0 mcg PO DAILY [facility] Last Admin: 03/15/21 08:44 Dose: 25 mcg Documented by: - Exam Quality Assessment: Reports: DVT Prophylaxis. Denies: Supplemental Oxygen, Urine Catheter General: Reports: Alert, Oriented, Cooperative, Mild Distress HEENT: Reports: EOMI Neck: Reports: Supple, No JVD Lungs: Reports: Clear to Auscultation, Normal Respiratory Effort Cardiovascular: Reports: Regular Rate, Regular Rhythm, No Murmurs. Denies: Tachycardia GI/Abdominal Exam: Soft, Non-Tender (Male) Exam: Deferred Rectal (Males) Exam: Deferred Back Exam: Reports: Normal Inspection Extremities: Normal Range of Motion, Normal Capillary Refill, Other (diminished DP and PT pulses in LLE). No: Pedal Edema, Mottled, Pallor Skin: Reports: Warm, Dry. Denies: Cool, Moist, Ecchymosis Neurological: Denies: Sensation Intact (decreased sensation in LLE) Psy/Mental Status: Reports: Normal Affect, Normal Mood *Q Meaningful Use (DIS) - VTE *Q VTE Mechanical Contraindications *Q: Tx/Proc Refused byPt VTE Pharmacological Contraindications *Q: Tx/Proc Refused by Pt VTE Anticoagulation Contraindications: Tx/proc Refused by PT - Stroke *Q Aspirin Contraindications Stroke *Q: Patient Refusal Anticoagulation Contraindications Stroke *Q: TX/PROC Refused by PT Antithrombotic Contraindications Stroke *Q: TX/PROC Refused by PT Statin Contraindications Stroke *Q: TX/PROC Refused by PT Rehabilitation Assessment Contraindication *Q: Tx/proc refused by pt - AMI *Q Aspirin Contraindications AMI *Q: TX/PROC Refused by PT Statin Contraindications AMI *Q: TX/Proc Refused by PT
[2021-03-16] MEDS ORDERED: Levothyroxine 112 MCG Tab PO SCH (06:00)
[2021-03-16] MEDS ORDERED: Levothyroxine 25 MCG Tab PO SCH (06:00)
== END 2021-03-15 11:30 | DRG 300 ==
LOC: DL.ED 09:53 → DL.MS 16:22
PROVIDERS: ADMIT Hospitalist; ATTEND Hospitalist
DX: I73.9 Peripheral vascular disease, unspecified (principal); E78.00 Pure hypercholesterolemia, unspecified; I70.222 Atherosclerosis of native arteries of extremities with rest pain, left leg; I49.3 Ventricular premature depolarization; Z95.5 Presence of coronary angioplasty implant and graft; G47.30 Sleep apnea, unspecified; K76.0 Fatty (change of) liver, not elsewhere classified; Z68.41 Body mass index [BMI] 40.0-44.9, adult; E78.5 Hyperlipidemia, unspecified; E66.01 Morbid (severe) obesity due to excess calories; I10 Essential (primary) hypertension; E66.9 Obesity, unspecified; Z86.718 Personal history of other venous thrombosis and embolism; Z95.820 Peripheral vascular angioplasty status with implants and grafts; I16.0 Hypertensive urgency; Z79.01 Long term (current) use of anticoagulants; G47.33 Obstructive sleep apnea (adult) (pediatric); E03.9 Hypothyroidism, unspecified; Z20.822 Contact with and (suspected) exposure to COVID-19; M54.9 Dorsalgia, unspecified; N40.0 Benign prostatic hyperplasia without lower urinary tract symptoms; G89.29 Other chronic pain; Z87.442 Personal history of urinary calculi; Z79.82 Long term (current) use of aspirin; Z79.890 Hormone replacement therapy; Z79.899 Other long term (current) drug therapy; Z91.013 Allergy to seafood; Z91.018 Allergy to other foods; Z28.82 Immunization not carried out because of caregiver refusal
CPT/HCPCS: 36415; 80048; 85049; 85730; 99284; A9270-GY; J1644; U0002

== ENCOUNTER 2021-03-25 15:46 | Emergency (ER) | payer OTHER, BC ==
[2021-03-25 16:51] VITALS: BP 107/76; PULSE 112
--- NOTE | 2021-03-25 17:22 | EDM.PDOC ---
ED HPI GENERAL MEDICAL PROBLEM - General Chief Complaint: Wound Recheck Stated Complaint: FEVER/WOUND Time Seen by Provider: 03/25/21 17:00 Source of Information: Reports: Patient, Old Records, RN, RN Notes Reviewed History Limitations: Reports: No Limitations - History of Present Illness INITIAL COMMENTS - FREE TEXT/NARRATIVE: Rigoberto is a 65 y/o male with a history of HTN, PAD, and claudication with a recent left femoropopliteal bypass secondary to angioplasty stent failure who presents to the ED via personal vehicle at the direction of his home health RN due to increased pain, erythema, and wound drainage to his distal fasciotomy sites. Additionally, he notes rigors, nausea, and malaise. The patient states home health assists him with dressing changes daily. He denies change in motor or sensory function to the affected extremity. He denies fever, palpitations, nausea, or diarrhea; he denies numbness, tingling, or coolness to the left lower extremity. He has not been in contact with his vacular surgeon regarding his most recent symptoms. Left Leg Pain Score (Numeric/FACES): 6 - Related Data Allergies Allergy/AdvReac Type Severity Reaction Status Date / Time shrimp Allergy Anaphylactic Verified 03/25/21 16:52 Shock mushrooms Allergy Hives Uncoded 03/25/21 16:52 Home Meds: Home Meds Acetaminophen [Pain Relief] 3 tab PO Q6HR PRN 03/25/21 [History] Aspirin [Aspirin EC] 81 mg PO DAILY 03/25/21 [History] Levothyroxine Sodium [Levothyroxine] 137 mcg PO DAILY 03/25/21 [History] Rivaroxaban [Xarelto] 20 mg PO DAILY 03/25/21 [History] Simvastatin 40 mg PO DAILY 03/25/21 [History] lisinopriL [Lisinopril] 5 mg PO DAILY 03/25/21 [History] Past Medical History HEENT History: Reports: Impaired Vision Cardiovascular History: Reports: Aneurysm, High Cholesterol, Hypertension, PVD, Stents Other Cardiovascular History: Aneurysm in R and L leg, stents in legs Respiratory History: Reports: Sleep Apnea Gastrointestinal History: Reports: Diverticulosis, Other (See Below) Other Gastrointestinal History: FATTY LIVER. GALLBLADDER POLYP. GALLBLADDER SLUDGE Genitourinary History: Reports: BPH, Renal Calculus Musculoskeletal History: Reports: Back Pain, Chronic Neurological History: Reports: None Psychiatric History: Reports: None Endocrine/Metabolic History: Reports: Hypothyroidism, Obesity/BMI 30+ Hematologic History: Reports: Anticoagulation Therapy Immunologic History: Reports: None Oncologic (Cancer) History: Reports: None Dermatologic History: Reports: None - Infectious Disease History Infectious Disease History: Reports: None - Past Surgical History Head Surgeries/Procedures: Reports: None HEENT Surgical History: Reports: None Cardiovascular Surgical History: Reports: Vascular Surgery Other Cardiovascular Surgeries/Procedures: vascular bypass to left leg Respiratory Surgical History: Reports: None GI Surgical History: Reports: None Male Surgical History: Reports: None Endocrine Surgical History: Reports: None Neurological Surgical History: Reports: None Musculoskeletal Surgical History: Reports: Shoulder Replacement Other Musculoskeletal Surgeries/Procedures:: Right shoulder replacement Dermatological Surgical History: Reports: None Social & Family History - Family History Family Medical History: No Pertinent Family History - Tobacco Use Tobacco Use Status *Q: Unknown Ever Used Tobacco - Caffeine Use Caffeine Use: Reports: Coffee, Tea Other Caffeine Use: 2-3 cups - Recreational Drug Use Recreational Drug Use: No - Living Situation & Occupation Living situation: Reports: Alone ED ROS GENERAL - Review of Systems Review Of Systems: Comprehensive ROS is negative, except as noted in HPI. ED EXAM, SKIN/RASH Exam: See Below Exam Limited By: No Limitations General Appearance: Alert, No Apparent Distress Eye Exam: Bilateral Eye: EOMI, PERRL (3mm) Ears: Normal External Exam, Hearing Grossly Normal Nose: Normal Inspection, Normal Mucosa, No Blood Throat/Mouth: Normal Inspection, Normal Oropharynx, Normal Voice, No Airway Compromise Head: Atraumatic, Normocephalic Neck: Normal Inspection, Supple, Non-Tender, Full Range of Motion. No: Lymphadenopathy (L), Lymphadenopathy (R) Respiratory/Chest: No Respiratory Distress, Lungs Clear, Normal Breath Sounds, No Accessory Muscle Use, Chest Non-Tender Cardiovascular: Normal Peripheral Pulses, Regular Rate, Rhythm, No Gallop, No Murmur, No Rub, Tachycardia Peripheral Pulses: 0: Posterior Tibial (L), 1+: Posterior Tibial (R), Dorsalis Pedis (L), Dorsalis Pedis (R), 2+: Radial (L), Radial (R) GI/Abdominal: Normal Bowel Sounds, Soft, Non-Tender, No Distention, No Abnormal Bruit, No Mass, Pelvis Stable (Male) Exam: Deferred Rectal (Males) Exam: Deferred Back Exam: Normal Inspection, Full Range of Motion Extremities: Normal Range of Motion, Normal Capillary Refill, Leg Pain (To left distal third and fourth fasciotomy sites), Increased Warmth (To left distal third and fourth fasciotomy sites), Redness (To left distal third and fourth fasciotomy sites), Other (Four fascitomy sites to left medial lower extremity with puncture site to left femoral site; Dressings in place). No: Joint Swelling Neurological: Alert, Oriented, CN II-XII Intact, Normal Cognition, No Motor/Sensory Deficits, Abnormal Gait Psychiatric: Normal Affect, Normal Mood Skin: Warm, Dry, Erythema (To left distal third and fourth fasciotomy sites), Increased Warmth (To left distal third and fourth fasciotomy sites), Wound/Incision (See above). No: Cyanosis, Ecchymosis Location, Skin: Lower Extremity, Left Characteristics: Linear, Erythematous Associated features: Warmth, Tenderness, Swelling, Inflammation, Crusting, Weeping Course - Vital Signs Last Recorded V/S: Last Vital Signs Temp 100.6 F 03/25/21 18:52 Pulse 112 H 03/25/21 16:47 Resp BP 107/76 03/25/21 16:47 Pulse Ox - Orders/Labs/Meds Labs: Laboratory Tests 03/25/21 03/25/21 03/25/21 Range/Units 17:29 17:29 17:29 WBC 25.9 H* (5.0-10.0) 10^3/uL RBC 4.75 (4.6-6.2) 10^6/uL Hgb 13.9 L (14.0-18.0) g/dL Hct 41.7 (40.0-54.0) % MCV 87.8 (80-100) fL MCH 29.3 (27.0-34.0) pg MCHC 33.3 (33.0-35.0) g/dL Plt Count 208 D (150-450) 10^3/uL Neut % (Auto) 92.2 H (42.2-75.2) % Lymph % (Auto) 3.1 L (20.5-50.1) % Coal % (Auto) 3.7 (2-8) % Eos % (Auto) 0.7 L (1.0-3.0) % Baso % (Auto) 0.3 (0.0-1.0) % Add Manual Diff Yes Neutrophils % (Manual) 85 H (42-75) % Band Neutrophils % 8 % Lymphocytes % (Manual) 7 L (20-50) % Microcytosis 1+ slight Sodium 132 L (136-145) mmol/L Potassium 4.4 (3.5-5.1) mmol/L Chloride 95 L (98-107) mmol/L Carbon Dioxide 24 (21-32) mmol/L Anion Gap 17.4 H (7-13) mEq/L BUN 18 (7-18) mg/dL Creatinine 1.16 (0.70-1.30) mg/dL Est Cr Clr Drug Dosing 54.58 mL/min Estimated GFR (MDRD) > 60 BUN/Creatinine Ratio 15.5 (No establ ref range) Glucose 110 H (70-99) mg/dL Lactic Acid 1.8 (0.4-2.0) mmol/L Calcium 9.3 (8.5-10.1) mg/dL Total Bilirubin 0.6 (0.2-1.0) mg/dL AST 18 (15-37) U/L ALT 39 (16-63) U/L Alkaline Phosphatase 82 (46-116) U/L C-Reactive Protein 2.0 H (0.0-0.9) mg/dL Total Protein 7.9 (6.4-8.2) g/dL Albumin 4.0 (3.4-5.0) g/dL Globulin 3.9 Albumin/Globulin Ratio 1.0 SARS-CoV-2 RNA (RAJANI) (NEGATIVE) 03/25/21 Range/Units 18:20 WBC (5.0-10.0) 10^3/uL RBC (4.6-6.2) 10^6/uL Hgb (14.0-18.0) g/dL Hct (40.0-54.0) % MCV (80-100) fL MCH (27.0-34.0) pg MCHC (33.0-35.0) g/dL Plt Count (150-450) 10^3/uL Neut % (Auto) (42.2-75.2) % Lymph % (Auto) (20.5-50.1) % Coal % (Auto) (2-8) % Eos % (Auto) (1.0-3.0) % Baso % (Auto) (0.0-1.0) % Add Manual Diff Neutrophils % (Manual) (42-75) % Band Neutrophils % % Lymphocytes % (Manual) (20-50) % Microcytosis Sodium (136-145) mmol/L Potassium (3.5-5.1) mmol/L Chloride (98-107) mmol/L Carbon Dioxide (21-32) mmol/L Anion Gap (7-13) mEq/L BUN (7-18) mg/dL Creatinine (0.70-1.30) mg/dL Est Cr Clr Drug Dosing mL/min Estimated GFR (MDRD) BUN/Creatinine Ratio (No establ ref range) Glucose (70-99) mg/dL Lactic Acid (0.4-2.0) mmol/L Calcium (8.5-10.1) mg/dL Total Bilirubin (0.2-1.0) mg/dL AST (15-37) U/L ALT (16-63) U/L Alkaline Phosphatase (46-116) U/L C-Reactive Protein (0.0-0.9) mg/dL Total Protein (6.4-8.2) g/dL Albumin (3.4-5.0) g/dL Globulin Albumin/Globulin Ratio SARS-CoV-2 RNA (RAJANI) Negative (NEGATIVE) Meds: Medications Discontinued Medications Generic Name Dose Route Start Last Admin Trade Name Freq PRN Reason Stop Dose Admin Acetaminophen 1,000 mg 03/25/21 18:50 03/25/21 18:52 Acetaminophen 500 Mg Tab PO 03/25/21 18:51 1,000 mg ONETIME ONE Administration Piperacillin Sod/Tazobactam 100 mls @ 200 mls/hr 03/25/21 18:00 03/25/21 18:31 Sod 3.375 gm/ Sodium Chloride IV 03/25/21 18:29 200 mls/hr ONETIME ONE Administration Vancomycin HCl 1,500 mg/ 500 mls @ 333.333 mls/hr 03/25/21 18:04 03/25/21 18:31 Sodium Chloride IV 03/25/21 19:33 333.333 mls/hr ONETIME ONE Administration - Re-Assessments/Exams Free Text/Narrative Re-Assessment/Exam: 03/25/21 Vanco 1.5gm IVPB and Zosyn 3.375gm IVP administered following lab results. As patient's extensive surgical cases have been performed at the [facility], case discussed with Dr. Sylvester, general/vascular surgeon at [facility] [place], who accepted patient for transfer. Findings of examination, lab work, and discussion with Dr. Sylvester reviewed with patient. Patient verbalized understanding and agreement with the plan of care. Departure - Departure Time of Disposition: 18:16 Disposition: DC/Tfer to [facility] Condition: Fair Clinical Impression: Sepsis Qualifiers: Sepsis type: sepsis due to unspecified organism Sepsis acute organ dysfunction status: without acute organ dysfunction Qualified Code(s): A41.9 - Sepsis, unspecified organism Post op infection Qualifiers: Encounter type: initial encounter Postoperative infection type: deep incisional surgical site Qualified Code(s): T81.42XA - Infection following a procedure, deep incisional surgical site, initial encounter - Discharge Information Referrals: PCP,None [Primary Care Provider] - Forms: ED Department Discharge, Interfacility Transfer [facility]
[2021-03-25] MEDS ORDERED: Piperacillin/Tazobactam 3.375 GM in Sodium Chloride 0.9% 100 ML IV ONE (18:00)
[2021-03-25 18:07] LABS: ANION GAP 17.4 mEq/L (7-13); CHLORIDE,CL 95 mmol/L (98-107); SODIUM,NA 132 mmol/L (136-145)
[2021-03-25] MEDS ORDERED: Acetaminophen 500 MG Tab PO ONE (18:50)
== END 2021-03-25 18:58 ==
LOC: DL.ED 15:46
DX: A41.9 Sepsis, unspecified organism (principal); T81.42XA Infection following a procedure, deep incisional surgical site, initial encounter; E78.00 Pure hypercholesterolemia, unspecified; I10 Essential (primary) hypertension; E03.9 Hypothyroidism, unspecified; E66.9 Obesity, unspecified; Z68.41 Body mass index [BMI] 40.0-44.9, adult; Z20.822 Contact with and (suspected) exposure to COVID-19; Z79.82 Long term (current) use of aspirin; Z79.899 Other long term (current) drug therapy; Z91.018 Allergy to other foods; Z79.01 Long term (current) use of anticoagulants
CPT/HCPCS: 36415; 80053; 83605; 85025; 86140; 87040; 87070; 87077; 87186; 96365; 96375; 99284-25; A9270-GY; J2543; J3370; J7040; U0002

== ENCOUNTER → 2022-01-25 | Day surgery (SDC) | payer OTHER, BC ==
[~2022-01-25] MED LIST changes: +Dextrose 5%-0.45% NaCl 1,000 ML IV ONE; +Midazolam 1 MG/ML 2 ML SDV IV ONE; -Midazolam 1 MG/ML 2 ML SDV ONE; +fentaNYL 100 MCG/2 ML SDV IV ONE; -fentaNYL 100 MCG/2 ML SDV ONE
== END ==
LOC: DL.ENDO 06:00
PROVIDERS: ATTEND Internal Medicine Gastroenterology
DX: Z12.11 Encounter for screening for malignant neoplasm of colon (principal); K63.5 Polyp of colon; K57.30 Diverticulosis of large intestine without perforation or abscess without bleeding; K64.8 Other hemorrhoids; G47.33 Obstructive sleep apnea (adult) (pediatric); I10 Essential (primary) hypertension; E78.5 Hyperlipidemia, unspecified; E03.9 Hypothyroidism, unspecified; N40.0 Benign prostatic hyperplasia without lower urinary tract symptoms; E66.09 Other obesity due to excess calories; Z86.010 Personal history of colon polyps; Z91.018 Allergy to other foods; Z91.013 Allergy to seafood
CPT/HCPCS: 45385; J2250; J3010; J7042

== ENCOUNTER 2024-11-01 19:39 | Emergency (ER) | payer OTHER ==
[2024-11-01 20:29] VITALS: BP 140/86; PULSE 80
== END 2024-11-01 20:25 | disposition home or self-care (01) ==
LOC: DL.ED 19:39
DX: S27.818A Other injury of esophagus (thoracic part), initial encounter (principal); I10 Essential (primary) hypertension; Z91.013 Allergy to seafood; Z91.018 Allergy to other foods; Z79.82 Long term (current) use of aspirin; Z79.899 Other long term (current) drug therapy; X58.XXXA Exposure to other specified factors, initial encounter; Y93.89 Activity, other specified
CPT/HCPCS: 70360; 99283